=== PATIENT | female | born 1955 | race Caucasian/White ===

== ENCOUNTER 2025-04-20 06:28 | Emergency (ER) | payer MEDICARE, OTHER, SELFPAY ==
[2025-04-20 06:33] VITALS: BP 114/75
[2025-04-20 07:08] VITALS: BMI 25.7
--- NOTE | 2025-04-20 07:54 | ED.GENMED ---
History of Present Illness
General
Chief Complaint: Fall
Source: patient
Time Seen by Provider: 04/20/25 06:51
History of Present Illness
History of Present Illness:
Note:
CHIEF COMPLAINT(S)
Fall down stairs.
HISTORY OF PRESENT ILLNESS
The patient is a 69-year-old female who presented to the emergency department after a fall down a flight of approximately 10 to 12 stairs. The incident occurred while she was at the top of the stairs, looking down with a flashlight on her phone,
carrying a heavy bag on her shoulder. The patient described the fall as headfirst, tumbling down 'like boom, boom, boom.' She recalls hitting all steps and ending up at the bottom, where there was a wall. Despite the fall, she did not report any
loss of consciousness.
She complained primarily of pain in her head, left shoulder, with her head having sustained the most impact. The patient reported tenderness in her left shoulder, particularly on the lateral aspect, and mild pain rated at a 5 out of 10. She denied
any neck or back pain. There was a 1.5 cm laceration on the left parietal scalp, with minor active oozing noted.
The patient was able to ambulate, putting weight on her left leg without significant pain, though she mentioned some discomfort when pressure was applied. She reported being more concerned about her son and daughters reaction to the incident.
PHYSICAL EXAM
General: Alert, cooperative.
Skin: Laceration on the left parietal scalp with minor active oozing.
Head: Scalp laceration noted, no hematoma.
Neck: Supple, no midline cervical spine tenderness.
Eye Ears, Nose, Mouth, and Throat: No abnormalities reported.
Cardiovascular: Normal peripheral perfusion, no edema.
Respiratory: Respirations are non-labored.
Gastrointestinal: Abdomen nondistended.
Musculoskeletal: Tenderness in the left shoulder; normal range of motion and strength, though pain noted with active movements. No significant tenderness in back. Normal range of motion in bilateral knees and hips. No tenderness in left knee, tibia,
or femur.
Neurological: Alert and oriented to person, place, time, and situation. Motor function normal.
Psychiatric: Appropriate mood and affect.
PROBLEM LIST
Acute Problems:
1. Laceration on the left parietal scalp.
2. Left shoulder tenderness and pain.
3. History of fall down the stairs.
PLAN
1. Immediate management of the scalp laceration with nolan to control bleeding and facilitate healing.
2. Head CT scan to rule out intracranial injury due to the nature of the fall.
3. Obtain x-rays of the left shoulder to evaluate for possible fractures.
4. Monitor for changes in neurological status given the mechanism of injury.
5. Provide pain management as needed.
DIFFERENTIAL DIAGNOSIS
The Differential Diagnosis includes, in no particular order and is not limited to:
1. Scalp laceration.
2. Shoulder contusion.
3. Rotator cuff injury.
4. Glenohumeral joint injury.
5. Humeral neck fracture.
6. Traumatic brain injury.
7. Cervical spine injury.
8. Rib fracture.
9. Hematoma formation.
10. Soft tissue injury.
Disposition:
SUMMARY OF ENCOUNTER
The patient is a 69-year-old female who presented to the emergency department after falling down a flight of approximately 10 to 12 stairs. The fall was reportedly headfirst, resulting in a 1.5 cm laceration on the left parietal scalp. Despite the
fall, she had no loss of consciousness. She experienced head, left shoulder, and neck pain, with the head sustaining the most impact. Physical examination showed tenderness in her left shoulder and a scalp laceration with minor active oozing. She
was able to ambulate without significant pain in the lower extremities. A head CT scan was performed to rule out intracranial injury, which showed no acute hemorrhage. X-rays of the left shoulder were taken to evaluate for fractures, revealing
arthritis but no fractures. No cervical spine tenderness or other signs of spinal or bone injury were noted. [place] were placed to manage the scalp laceration, and the patient was deemed appropriate for outpatient follow-up.
PLAN
1. Immediate management of the scalp laceration with nolan to control bleeding and facilitate healing.
2. Head CT scan showed no acute hemorrhage, confirming no intracranial injury due to the fall.
3. X-rays of the left shoulder showed arthritis but no fractures, reassuring the absence of severe injury.
4. Monitor for any changes in neurological status and educate on warning signs.
5. Provide pain management as needed.
MEDICAL DECISION MAKING
-Complexity of Data Reviewed: Acute problems affecting care include scalp laceration, left shoulder tenderness, and history of fall down the stairs. Differential diagnoses considered include shoulder contusion, rotator cuff injury, glenohumeral
joint injury, humeral neck fracture, traumatic brain injury, cervical spine injury, rib fracture, hematoma formation, and soft tissue injury.
-Data:
Category 1
My independent interpretation of the head CT scan indicates no acute intracranial hemorrhage. My independent interpretation of the left shoulder X-ray indicates arthritis with no fractures.
Category 3
No discussions with other healthcare providers were explicitly mentioned.
-Risk:
Consideration of Admission/Observation: Escalation of care including admission/observation was considered given the complexity and risk of the patients presenting complaint, exam findings, and/or their underlying comorbidities. However, ultimately I
feel the patient is safe for outpatient management with close follow-up. Reasoning: Work-up reassuring, does not reveal any acute life/organ-threatening processes, patients symptoms well controlled upon reevaluation, reexamination is reassuring,
vitals are stable, patient agreeable with discharge, reliable for follow-up.
DIAGNOSIS
1. Scalp laceration - ICD-10: S01.02XA
2. Contusion
3. Fall from stairs - ICD-10: W10.9XXA
4. head injury
Phy Exam
Physical Exam
Physical Exam:
.
Course
Orders/Labs/Results
Orders:
Orders
04/20/25 07:15
CT Head W/o Iv Contrast Urgent
Comment:
Reason For Exam: fall
Shoulder, Left, Trauma CR [CR Shoulder, Trauma - Left] Urgent
Comment:
Reason For Exam: fall
Vital Signs
Initial and Last Documented VS:
Initial Vital Signs
Temp Pulse Resp BP Pulse Ox
97.9 F 78 20 114/75 98
04/20/25 06:33 04/20/25 06:33 04/20/25 06:33 04/20/25 06:33 04/20/25 06:33
Last Documented Vital Signs
Temp Pulse Resp BP Pulse Ox
98.2 F 67 16 120/76 100
04/20/25 08:12 04/20/25 08:12 04/20/25 08:12 04/20/25 08:12 04/20/25 08:12
Procedures
Laceration Closure
Left Scalp:
Status of Wound: clean
Size of Wound in cm: 1.5
Description of Wound Edges: sharp
Preparation: cleaned with saline
Number of sutures: 3
*Pulse Oximetry
SaO2: 98
Oxygen Mode of Delivery: Room air
Patient hypoxic: no
*Critical Care Note
Total Time (30-74mins, 75-104mins- exclusive of procedures): Not Applicable
ED Attending Note
-
Portions of this chart may have been created with voice recognition software.� Occasional wrong word or��sound alike� substitutions may have occurred due to the inherent limitations of voice recognition software.
Discharge Plan
Departure
Patient Disposition: Home (Routine Discharge)
Date of Disposition: 04/20/25
Time of Disposition: 07:54
Patient with high blood pressure during this ER visit?: No
Discharge Problem:
Head injury, Laceration of scalp
Instructions: Head Injury in Adults (DC), Laceration Repair With Nolan (DC)
Referrals:
Alyce Sainz DO [Family Provider, Family Practice]
Activity Restrictions/Additional Instructions:
Return immediately for changes in mentation, weakness any kind, vomiting, worsening pain or any other concerns. [place] can be removed in 1 week. Please see your doctor in the next 1 week for follow-up and reevaluation.
Interventions
Interventions:
*Risk Screen - Suicide Last Done: 04/20/25 06:33
*General Assessment Last Done: 04/20/25 06:33
*Neglect/Abuse Screening Last Done: 04/20/25 06:33
*ED- Fall Risk Assessment Last Done: 04/20/25 06:33
*ED COVID-19 Vaccine History Last Done: 04/20/25 06:33
*ED Influenza Vaccine History Last Done: 04/20/25 06:33
*Nursing Disposition Last Done: 04/20/25 08:13
ED-Musculoskeletal Assessment Last Done: 04/20/25 07:06
ED- Neurological Assessment Last Done: 04/20/25 07:01
ED-Skin Assessment Last Done: 04/20/25 07:02
Discharge Date and Time
Discharge Date/Time: 04/20/25 08:25
Print Language: [id number]
[2025-04-20 08:12] VITALS: BP 120/76
== END 2025-04-20 08:25 | disposition home or self-care (01) ==
LOC: EMR 06:28
PROVIDERS: EMERGENCY PHYSICIAN Emergency Medicine; FAMILY PHYSICIAN Family Medicine
DX: S09.90XA Unspecified injury of head, initial encounter (principal); S01.01XA Laceration without foreign body of scalp, initial encounter; W10.9XXA Fall (on) (from) unspecified stairs and steps, initial encounter; M19.012 Primary osteoarthritis, left shoulder
CPT/HCPCS: 99284; 12001; 70450; 73030